=== PATIENT | male | born 1965 | race American Indian/Alaskan Native ===

== ENCOUNTER 2016-09-05 11:04 | Outpatient (CLI) | payer BC ==
--- NOTE | 2016-09-05 11:48 | XRay Report ---
ROUTINE CHEST, TWO VIEWS: HISTORY: Cough. No comparison. Bronchovascular markings in the right upper lobe are prominent. There appears to be mild volume loss in the right upper lobe with thickening of the right peritracheal stripe. This suggests a chronic process. The remainder of the lungs are clear. No pleural effusion or pneumothorax. Normal heart and mediastinal structures. IMPRESSION: Right upper lobe opacity as described. I suspect this is chronic. If fever is present, right upper lobe pneumonia could be considered. Otherwise, further evaluation with CT chest with contrast should be considered.
== END 2016-09-05 11:05 | disposition home or self-care (01) ==
LOC: XRAY 11:04
PROVIDERS: ATTEND Internal Medicine
DX: R05 Cough (principal)
CPT/HCPCS: 71020

== ENCOUNTER 2016-09-14 11:10 | Outpatient (CLI) | payer BC ==
[2016-09-14 12:21] LABS: Blood Urea Nitrogen 14 mg/dL (9-20)
[2016-09-14] MEDS ORDERED: NACL ONE (13:05)
--- NOTE | 2016-09-15 10:06 | Cat Scan Report ---
CT of the chest with and without IV contrast. Findings: There is extensive interstitial fibrosis in the right upper lobe with honeycomb pattern seen at the apex. Pleural thickening is present laterally. There is volume loss of the right upper lung. There also areas of interstitial fibrosis in the lingular segment of the left upper lobe and minimal involvement of the right lower lobe posteriorly. There is adenopathy in the mediastinum with the largest node seen in the right paratracheal region measuring 2.9 cm in diameter. A few small nodes are seen in the left para-aortic region and there is mild bilateral hilar adenopathy. There is no pleural fluid. Impression: Bilateral chronic interstitial fibrosis, most pronounced in the right upper lobe with associated volume loss and right pleural thickening. Mediastinal and hilar adenopathy is present.
== END 2016-09-14 11:11 | disposition home or self-care (01) ==
LOC: CT 11:10
PROVIDERS: ATTEND Internal Medicine
DX: J84.10 Pulmonary fibrosis, unspecified (principal); R59.0 Localized enlarged lymph nodes
CPT/HCPCS: 36415; 71270; 82565; 84520; Q9967

== ENCOUNTER 2016-10-11 09:48 | Outpatient (CLI) | payer BC ==
[2016-10-11 10:47] LABS: Hematocrit 48.3 % (35.5-45.6); Hemoglobin 15.8 gm/dl (11.8-15.2); Mean Corpuscular HGB Conc 33 % (32-34); Mean Corpuscular Hemoglobin 30 pg (28-32); Mean Corpuscular Volume 91 fl (84-94); Platelet Count 202 K/mm3 (140-440); Red Blood Count 5.32 M/mm3 (3.65-5.03); Red Cell Distribution Width 13.6 % (13.2-15.2); White Blood Count 5.9 K/mm3 (4.5-11.0)
[2016-10-11 11:10] LABS: Alanine Aminotransferase 27 units/L (7-56); Albumin/Globulin Ratio 1.1 %; Alkaline Phosphatase 68 units/L (35-129); Anion Gap 18 mmol/L; Bilirubin,Total 0.6 mg/dL (0.1-1.2); Blood Urea Nitrogen 15 mg/dL (9-20); Calcium 9.3 mg/dL (8.4-10.2); Carbon Dioxide 25 mmol/L (22-30); Chloride 100.4 mmol/L (98-107); Cholesterol 157 mg/dL (50-199); Glucose 88 mg/dL (75-100); HDL Cholesterol 35 mg/dL (40-59); LDL Cholesterol,Direct 106 mg/dL (50-130); Potassium 4.6 mmol/L (3.6-5.0); Sodium 139 mmol/L (137-145); Total Protein 7.8 g/dL (6.3-8.2); Triglycerides 80 mg/dL (2-149)
--- NOTE | 2016-10-11 11:19 | Fluoroscopy Report ---
UPPER GI AIR CONTRAST: History: Gastroesophageal reflux disease, abdominal pain, cough. FINDINGS: The patient ingested barium without difficulty. The esophageal contour is normal. There are no ulcerations or filling defects seen in the esophagus. There is normal esophageal motility. There is no hiatal hernia or reflux. The gastric contour and position appear normal. There are no ulcerations or filling defects in the stomach. The duodenal bulb and duodenal sweep appear normal. IMPRESSION: Negative double contrast upper GI examination.
== END 2016-10-11 09:49 | disposition home or self-care (01) ==
LOC: FLUORO 09:48
PROVIDERS: ATTEND Internal Medicine
DX: Z03.89 Encounter for observation for other suspected diseases and conditions ruled out (principal)
CPT/HCPCS: 36415; 74247; 80053; 80061; 82164; 84439; 84443; 85027; 86038; 86618

== ENCOUNTER 2016-12-08 09:23 | Outpatient (CLI) | payer BC ==
--- NOTE | 2016-12-09 10:31 | PET Report ---
PET SB TO MT INITIAL: HISTORY: Mediastinal and right hilar adenopathy. TECHNIQUE: 12.3 millicuries F-18 FDG was administered intravenously. Noncontrast CT images and PET images were obtained from the skull base to the proximal thighs. Fused images were reviewed on a workstation. The patient's blood glucose level measured 86. COMPARISON: CT chest performed 09/14/16. FINDINGS: BRAIN: physiologic FDG uptake in the imaged brain. NECK: physiologic FDG uptake. MEDIASTINUM: A right paratracheal lymph node measures 2.4 x 1.6 cm and is unchanged with max SUV measuring 4.8. A precarinal lymph node is unchanged measuring 2.0 x 1.5 cm with max SUV measuring 4.2. A right hilar lymph node is unchanged measuring 2.3 x 1.8 cm with max SUV measuring 4.4. No new mediastinal lymph nodes since the previous CT chest.. LUNGS: There is volume loss and cystic change or cystic bronchiectasis throughout the right upper lobe which is unchanged. There is no discrete lung mass or abnormal hypermetabolic activity. Max SUV in this cystic area of the right upper lobe measures 3.6. The remaining lung parenchyma is unremarkable. PLEURA/PERICARDIUM: physiologic FDG uptake. HEPATOBILIARY: physiologic FDG uptake. Mean liver SUV measures . PANCREAS: physiologic FDG uptake. SPLEEN: physiologic FDG uptake. ADRENAL GLANDS: physiologic FDG uptake. KIDNEYS/RENAL COLLECTING SYSTEMS: physiologic FDG uptake. BOWEL/MESENTERY: physiologic FDG uptake. PELVIC VISCERA: physiologic FDG uptake. ABDOMINAL/PELVIC LYMPH NODES: physiologic FDG uptake. MUSCULOSKELETAL: physiologic FDG uptake. IMPRESSION: Chronic appearing interstitial changes are identified throughout the right upper lobe. This may represent cystic bronchiectasis with volume loss. There is no discrete lung mass. There are 3 mildly enlarged lymph nodes in the precarinal chain, right paratracheal chain and right hilar chain which demonstrate mild increased metabolic activity. This may be related to interstitial lung disease. I am not entirely convinced this represents a neoplastic process. These lymph nodes should be accessible for biopsy via bronchoscopy.
== END 2016-12-08 09:24 | disposition home or self-care (01) ==
LOC: PET 09:23
PROVIDERS: ATTEND Internal Medicine
DX: R91.8 Other nonspecific abnormal finding of lung field (principal); J98.4 Other disorders of lung; D86.9 Sarcoidosis, unspecified; R59.9 Enlarged lymph nodes, unspecified
CPT/HCPCS: 78815; 82962; A9552